=== PATIENT | female | born 1965 | race Two or more races ===

== ENCOUNTER 2020-08-21 06:54 | Day surgery (SDC) | payer OTHER | END 2020-08-21 21:20 | disposition home or self-care (01) | LOC: CIR.AMB 06:54 | PROVIDERS: ATTEND Surgery | DX: D05.02 Lobular carcinoma in situ of left breast (principal); N63 Unspecified lump in breast; Z20.828 Contact with and (suspected) exposure to other viral communicable diseases ==

== ENCOUNTER 2021-04-05 11:30 | Day surgery (SDC) | payer OTHER | END 2021-04-05 16:15 | disposition home or self-care (01) | LOC: AMB-ENDOS 11:30 | PROVIDERS: ATTEND Surgery | DX: D12.0 Benign neoplasm of cecum (principal); Z20.822 Contact with and (suspected) exposure to COVID-19; Z12.11 Encounter for screening for malignant neoplasm of colon ==